=== PATIENT | female | born 1975 | race African-American/Black ===

== ENCOUNTER 2017-04-18 11:09 | Emergency (ER) | payer SELFPAY ==
[~2017-04-18] VITALS: Ht 175.3 cm; Wt 89.4 kg
[~2017-04-18 11:09] MED LIST: AMLODIPINE BESY10 MG PO; FAMOTIDINE20 M1 NG; FLEXERIL10 MG PO; HYDROCHLOROTHIA25 MG PO; LABETALOL HCL100 MG PO; MOBIC7.5 MG PO; MOTRIN800 MG PO; ZESTORETIC,P1 TABLE1 PO
[2017-04-18 11:11] VITALS: BP 120/83
[2017-04-18 13:01] LABS: HEMATOCRIT 39.2 % (36.0-46.0); MCH 28.3 PG (29.0-34.0); MCHC 32.1 G/DL (30.0-36.0); MCV 87.9 FL (83-99); MEAN PLAT.VOLUME 9.7 uM^3 (9.5-12.4); PLATELET COUNT 279 K/uL (156-360); RBC DIS.WIDTH-CV 13.9 % (11.8-14.6); RBC DIS.WIDTH-SD 44.6 % (39-53); RED BLOOD COUNT 4.46 M/uL (3.80-5.20); WHITE BLOOD COUNT 5.7 K/uL (4.1-10.2)
[2017-04-18 13:13] LABS: CHLORIDE 104 mEq/L (99-109); POTASSIUM 4.1 mEq/L (3.7-5.4); SODIUM 138 mEq/L (136-147)
[2017-04-18 13:16] LABS: GLUCOSE 74 mg/dL (70-99)
[2017-04-18 13:17] LABS: ANION GAP 8 MEQ/L (2-14)
[2017-04-18 13:18] LABS: TOTAL BILIRUBIN 0.6 mg/dL (0.0-1.0)
[2017-04-18 13:19] LABS: ALKALINE PHOSPHATASE 64 IU/L (3-129); GFR ESTIMATE (CALCULATED) > 59 mL/min/
[2017-04-18 13:20] LABS: UREA NITROGEN (BUN) 11 mg/dL (9-23)
[2017-04-18] MEDS ORDERED: COLACE100 MG PO (16:19)
[2017-04-18] MEDS ORDERED: MIRALAX17 GM PO (16:19)
[2017-04-18 16:35] LABS: ADD MIUA? YES; BILIRUBIN NEGATIVE; BLOOD MODERATE; COLOR STRAW ((YELLOW)); GLUCOSE (STRIP) NEGATIVE; KETONES 5; LEUKOCYTES NEGATIVE; NITRITE NEGATIVE; PROTEIN (STRIP) NEGATIVE; SPECIFIC GRAVITY 1.005 (1.000-1.030); UROBILINOGEN 0.2 MG/DL (0.2-1.0)
[2017-04-18 16:43] LABS: BACTERIA NONE SEEN /HPF; EPITHELIAL CELLS RARE /HPF; MUCUS TRACE /LPF; RED BLOOD CELLS 0-5 /HPF (0-5); UCUL ADDED? NO; WHITE BLOOD CELLS 0-5 /HPF (0-5)
== END 2017-04-18 16:54 | disposition home or self-care (01) ==
LOC: EME 11:09
PROVIDERS: Nurse Practitioner Family
DX: K59.00 Constipation, unspecified (principal); D25.9 Leiomyoma of uterus, unspecified; I10 Essential (primary) hypertension
CPT/HCPCS: 74020; 74176; 80053; 81003; 85027; 99281; 99284

== ENCOUNTER 2017-12-27 13:18 | Emergency (ER) | payer SELFPAY ==
[~2017-12-27] VITALS: Ht 175.3 cm; Wt 87.3 kg
[~2017-12-27 13:18] MED LIST changes: +COLACE100 MG PO; +MIRALAX17 GM PO
[2017-12-27 16:23] VITALS: BP 118/94
== END 2017-12-27 16:07 | disposition home or self-care (01) ==
LOC: EME 13:18
DX: S61.512A Laceration without foreign body of left wrist, initial encounter (principal); W26.8XXA Contact with other sharp object(s), not elsewhere classified, initial encounter; Z23 Encounter for immunization; I10 Essential (primary) hypertension; Z88.6 Allergy status to analgesic agent
CPT/HCPCS: 99281; 99283

== ENCOUNTER 2018-01-04 14:06 | Emergency (ER) | payer SELFPAY ==
[~2018-01-04] VITALS: Ht 175.3 cm; Wt 89.0 kg
[2018-01-04 16:07] VITALS: BP 123/75
== END 2018-01-04 16:07 | disposition home or self-care (01) ==
LOC: EME 14:06
DX: S61.512D Laceration without foreign body of left wrist, subsequent encounter (principal); Z88.6 Allergy status to analgesic agent
CPT/HCPCS: 99281; 99283